=== PATIENT | male | born 1990 | race Caucasian/White ===

== ENCOUNTER → 2019-06-24 | Outpatient (CLI) | payer BC | LOC: LAB 10:05 | PROVIDERS: ATTEND Physician Assistant | DX: Z91.018 Allergy to other foods (principal) | CPT/HCPCS: 36415; 86003 ==

== ENCOUNTER → 2019-07-25 | Outpatient (CLI) | payer BC | LOC: LAB 10:08 | PROVIDERS: ATTEND Otolaryngology Otolaryngology/Facial Plastic Surgery | DX: Z91.018 Allergy to other foods (principal); Z91.038 Other insect allergy status | CPT/HCPCS: 36415; 86003; 86618; 86666; 86668; 86757 ==